=== PATIENT | male | born 1970 | race Caucasian/White ===

== ENCOUNTER 2017-03-26 07:11 | Observation (INO) | payer BC ==
--- NOTE | ~2017-03-26 | EKG ---
PATIENT: DEVEN AGUILAR UNIT #: [id number] Ventricular Rate: 45 BPM Atrial Rate: 45 BPM P-R Interval: 170 ms QRS Duration: 104 ms Q-T Interval: 478 ms QTC Calculation(Bezet): 413 ms P Montgomery: 65 degrees Calculated R Montgomery: 75 degrees Calculated T Montgomery: 13 degrees Diagnosis Line: Sinus bradycardia Diagnosis Line: Otherwise normal ECG Diagnosis Line: No previous ECGs available Diagnosis Line: Confirmed by ARASH JUSTIN MD ([id number]) on Diagnosis Line: 03/26/2017 8:38:01 AM INTERPRETING MD: NHAN LIU
--- NOTE | ~2017-03-26 | CR58 ---
[facility] A Service of [facility] & [facility] RADIOLOGY TEXT RESULTS PATIENT: DEVEN AGUILAR LOCATION: [facility] 311-01 : 72 UNIT #: [id number] AGE: [address]: Inna Lennon MD SEX: M ORDER DR: [id number] [facility] [address] [place], [place] [address] [id number] E MR#: [id number] Acc #: [id number] NAME: DEVEN AGUILAR. : 1970 SEX: M STUDY DATE/TIME: 03/26/2017 8:03 UNIT: [facility] ROOM: STUDY DESCRIPTION: CR Cervical Spine 2 or 3 Views Attending Physician: Lois Randall M.D. Ordering Physician: Blessing Tan Pa-C Primary Care Physician: Primary Care Physician No MEDICAL IMAGING REPORT This report is preliminary unless electronic signature is present EXAM Cervical spine series, 03/26/17 HISTORY Neck pain primarily right sided since yesterday, trampoline injury FINDINGS There is a slight scoliosis but no anterolisthesis or retrolisthesis. Prevertebral swelling or evidence of fracture, or other acute abnormality. Incidentally noted atherosclerotic vascular calcification at the right cervical bifurcation. No other acute findings. Dictated by... Pino Tena M.D. THIS IS AN ELECTRONICALLY VERIFIED REPORT Pino Tena M.D. at 03/28/2017 1:22 PM SALINAS/oskar TD: 03/26/2017 11:56 JOB #: [id number] MEDICAL IMAGING REPORT Page 1 of 1 COPY
--- NOTE | ~2017-03-26 | ST ---
Unit #: [id number] #: [id number] Patient: DEVEN AGUILAR [id number] [address] [address] [id number] I MR#: [id number] NAME: DEVEN AGUILAR. : 1970 SEX: M STUDY DATE/TIME: 03/27/2017 UNIT: C3A PCU ROOM: 311 STUDY DESCRIPTION: Stress test Attending Physician: Inna Lennon M.D. Primary Care Physician: No Primary Care Physician CARDIOLOGY REPORT EXAM Lexiscan Cardiolite stress test. FINDINGS Baseline EKG: Normal sinus rhythm with ventricular rate 85 beats per minute, left atrial abnormality, poor R wave progression, nondiagnostic Q waves in lateral leads. Lexiscan is a four minute test with Lexiscan being injected within the first minute followed by Cardiolite. EKG during the test was equivocal to baseline. No acute ischemic changes. The patient had no complaints of chest pain, palpitations or dizziness. The patient had increased shortness of breath and fatigue which resolved in the recovery phase. Maximum heart rate response was 86 beats per minute with a maximum blood pressure response of 146/83 beats per minute. It is noted that there is no sinus bradycardia noted on this exam. Cardiolite was injected after Lexiscan within the first minute of the test. Radionuclide test pending. Please correlate with nuclear images. Dictated by... Gely Ruiz A.P.R.N. for Keeley Aceves/shania TD: 03/27/2017 09:25 JOB #: [id number] CARDIOLOGY REPORT Page 1 of 1 X Gely Ruiz APRN CARDIOLOGY REPORT
--- NOTE | ~2017-03-26 | HP ---
Unit #: [id number] #: [id number] Patient: DEVEN AGUILAR [id number] [address] [address] [id number] I MR#: [id number] NAME: DEVEN AGUILAR. ROOM: 311 Age: 46 Sex: M Admission Date: 03/26/2017 : 1970 Attending Physician: Inna Lennon M.D. Primary Care Physician: No Primary Care Physician HISTORY AND PHYSICAL ADDENDUM The patient was admitted with most likely vasovagal near syncopal episode and symptomatic bradycardia. He underwent Lexiscan Cardiolite stress test which found the patient to have an ejection fraction of 51%. There was no stress induced ischemia or focal wall abnormality. His left ventricle cavity was mild to moderately dilated both rest and post stress. Echocardiogram report is currently pending. The patient can be discharged home today to follow up with Dr. Lennon on 05/07/2017 at 1:30 p.m. He needs to follow up with a primary care physician in one to two weeks. He will be started on lisinopril 5 mg p.o. q.h.s. as well as continuation of aspirin 81 mg daily. He has a prescription for Flexeril 5 mg t.i.d. for his cervical neck strain. Dictated by Arley Mark A.P.R.N. for Keeley Aceves/shania TD: 03/27/2017 11:29 JOB #: [id number] HISTORY AND PHYSICAL Page 1 of 1 X Arley Mark APRN X HISTORY AND PHYSICAL
--- NOTE | ~2017-03-26 | CR72 ---
[facility] A Service of [facility] & [facility] RADIOLOGY TEXT RESULTS PATIENT: DEVEN AGUILAR LOCATION: [facility] [id number] : [birth year] UNIT #: [id number] AGE: [address]: Inna Lennon MD SEX: M ORDER DR: [id number] [facility] [address] [facility]. [place], [place] [address] [id number] E MR#: [id number] Acc #: [id number] NAME: DEVEN AGUILAR. : 1970 SEX: M STUDY DATE/TIME: 03/26/2017 0956 UNIT: [facility] ROOM: STUDY DESCRIPTION: CR Chest Single View Portable Attending Physician: Lois Randall M.D. Ordering Physician: Lois Randall M.D. Primary Care Physician: No Primary Care Physician MEDICAL IMAGING REPORT This report is preliminary unless electronic signature is present EXAM Chest, portable, 03/26/2017, 0956 hours. CLINICAL HISTORY 46-year-old man complaining of syncope with shortness of air since yesterday, bradycardia. COMPARISON 02/13/2012 FINDINGS 2 portable upright chest films were performed with pacer pad over the mediastinum and heart. The cardiac, mediastinal, and hilar contours are normal. The lungs are well expanded and clear. There is no effusion or pneumothorax. IMPRESSION No acute cardiopulmonary findings. No appreciable change from 02/23/2012. Dictated by... Pattie Jeffers M.D. THIS IS AN ELECTRONICALLY VERIFIED REPORT Pattie Jeffers M.D. at 03/26/2017 2:26 PM ENRIQUETA/morgan TD: 03/26/2017 13:38 JOB #: [id number] MEDICAL IMAGING REPORT Page 1 of 1 COPY
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
--- NOTE | ~2017-03-26 | TH ---
Unit #: [id number] #: [id number] Patient: DEVEN AGUILAR [id number] [address] [address] [id number] I MR#: [id number] NAME: DEVEN AGUILAR. : 1970 SEX: M [facility] DATE[facility]: [facility] 311 STUDY DESCRIPTION: Nuclear Study Attending Physician: Inna Lennon M.D. Primary Care Physician: No Primary Care Physician CARDIOLOGY REPORT EXAM Lexiscan Cardiolite Stress Test - Nuclear Portion PROCEDURE Using technetium 99m labeled Cardiolite, rest and stress SPECT images were obtained. Multiple SPECT images were obtained in various views including horizontal and vertical long axis and short axis views of the left ventricle. Images were obtained by gated SPECT method. The patient was administered 12.0 mCi of Cardiolite at rest. The patient was administered 32.3 mCi of Cardiolite after Lexiscan infusion was completed. On the stress images, there is normal perfusion noted. The rest images show normal perfusion. Comparing rest and stress images, there is no stress-induced ischemia noted. The left ventricular ejection fraction is calculated to be 51%. The left ventricular cavity is mild to moderately dilated, both at rest and post stress. CONCLUSION 1. No obvious stress-induced ischemia noted. 2. The left ventricular ejection fraction is calculated to be 51%. 3. There is no focal wall motion abnormality seen. 4. The left ventricular cavity is mild to moderately dilated, both at rest and post stress. 5. Normal Lexiscan Cardiolite stress test. 6. Technically limited study. Clinical correlation is requested. Dictated by... Keeley Aceves TD: 03/27/2017 10:52 JOB #: [id number] Unit #: [id number] #: [id number] Patient: DEVEN AGUILAR CARDIOLOGY REPORT Page 1 of 1 X Inna Lennon MD <ELECTRONICALLY SIGNED> 06/02/17 1429 CARDIOLOGY REPORT
[~2017-03-26 07:11] MED LIST: ADVIL200 M2 PO; BACLOFEN10 MG PO; IBUPROFEN800 MG PO; LORTAB 7.5-3251 EACH PO; SIMVASTATIN20 MG PO; TYLENOL #3 PO
[2017-03-26 08:49] LABS: BASOPHIL# 0.1 X10e3 (0-0.3); BASOPHIL% 0.8 % (0-2.5); EOSINOPHIL# 0.1 X10e3 (0-0.7); EOSINOPHIL% 1.7 % (0.0-7.0); HEMATOCRIT 45.7 % (38.0-50.0); HEMOGLOBIN 14.9 gm/dL (13.0-16.0); LYMPHOCYTE# 2.8 X10e3 (1.0-3.5); LYMPHOCYTE% 35.6 % (17.0-45.0); MEAN CELL VOLUME 92.1 FL (83-96); MEAN CORPUSCULAR HEMOGLOBIN 30.1 PG (28-34); MEAN CORPUSCULAR HGB CONC 32.7 g/dL (30-36); MEAN PLATELET VOLUME 9.9 FL (6.5-11.5); MONOCYTE# 0.8 X10e3 (0-1.0); MONOCYTE% 10.6 % (3.0-12.0); NEUTROPHIL% 51.3 % (40-75); RED BLOOD COUNT 4.96 X10e (3.90-5.60); RED CELL DISTRIBUTION WIDTH 12.6 % (11.0-15.5); WHITE BLOOD COUNT 7.8 X10e3 (4.0-10.5)
[2017-03-26 08:53] LABS: POC - CKMB 1.4 ng/mL (0.0-7.9); POC - TROPONIN <0.05 ng/mL (<=0.05)
[2017-03-26 09:03] LABS: ALBUMIN SERUM 4.2 g/dL (3.5-5.0); BILIRUBIN, DIRECT 0.1 mg/dL (0.0-0.2); BILIRUBIN,INDIRECT 0.5 mg/dL (0.0-0.9); BILIRUBIN,TOTAL 0.6 mg/dL (0.2-2.0); CALCIUM SERUM 9.5 mg/dL (8.4-10.2); GLOM FILT RATE Estimated 90.5 mL/min (>60); POTASSIUM 3.5 mmol/L (3.5-5.1)
[2017-03-26 09:17] LABS: DIFF IND NO; PLATELET COUNT 200 X10e3 (140-420)
[2017-03-26] MEDS ORDERED: PATIENT'S PHARMACY (10:12)
[2017-03-26 12:01] LABS: POC - CKMB 5.7 ng/mL (0.0-7.9); POC - TROPONIN <0.05 ng/mL (<=0.05)
[2017-03-26 12:02] LABS: URINE SOURCE CLEAN CATCH
[2017-03-26 12:18] LABS: URINE APPEARANCE CLEAR; URINE BILIRUBIN NEG (NEG); URINE BLOOD TRACE (NEG); URINE COLOR YELLOW; URINE GLUCOSE NEG (NEG); URINE KETONE NEG (NEG); URINE LEUKOCYTE ESTERASE NEG (NEG); URINE NITRATE NEG (NEG); URINE PROTEIN NEG (NEG); URINE SPECIFIC GRAVITY 1.008 (1.003-1.035); URINE UROBILINOGEN 0.2 MG/DL (NEG)
[2017-03-26 12:24] LABS: URBCS1 AUWI 0-2 /[HPF] (0-2); URINE BACTERIA AUWI NEG (NEGATIVE); URINE SQUAMOUS EPITHELIAL CELL NONE SEEN /[HPF]; UWBCS1 AUWI 0-2 (0-5)
[2017-03-26 12:36] LABS: CULTURE INDICATED? NO
[2017-03-26 12:39] LABS: AMPHETAMINE POS (NEG); BARBITURATES NEG (NEG); BENZODIAZEPINES NEG (NEG); COCAINE NEG (NEG); MARIJUANA POS (NEG); OPIATES NEG (NEG); TRICYCLIC ANTIDEPRESSANTS NEG (NEG); U METHADONE NEG (NEG)
[2017-03-26 18:33] LABS: BUN/CREATININE RATIO 16.25; CALCIUM SERUM 8.8 mg/dL (8.4-10.2); CREATININE SERUM 0.8 mg/dL (0.6-1.4); GLOM FILT RATE Estimated 107.9 mL/min (>60); POTASSIUM 4.1 mmol/L (3.5-5.1)
[2017-03-26 18:53] LABS: %MB 2.4 % (0.0-4.0); MB 9.9 ng/ml
[2017-03-27 01:43] LABS: BUN/CREATININE RATIO 13.33; CREATININE SERUM 0.9 mg/dL (0.6-1.4); GLOM FILT RATE Estimated 102.8 mL/min (>60); MAGNESIUM 1.9 mg/dL (1.6-3.0); POTASSIUM 3.8 mmol/L (3.5-5.1)
[2017-03-27 01:52] LABS: %MB 1.7 % (0.0-4.0); MB 6.5 ng/ml
[2017-03-27] MEDS ORDERED: ASPIRIN EC650 MG PO (13:03)
[2017-03-27] MEDS ORDERED: ASPIRIN81 MG PO (13:03)
[2017-03-27] MEDS ORDERED: IBUPROFEN800 MG PO (13:04)
[2017-03-27] MEDS ORDERED: FLEXERIL10 MG PO (13:05)
[2017-03-27] MEDS ORDERED: LISINOPRIL5 MG PO (13:05)
== END 2017-03-27 15:41 | disposition home or self-care (01) | DRG 312 ==
LOC: CED 07:11 → CEDOF 13:11 → C3A PCU 15:34
PROVIDERS: Internal Medicine Cardiovascular Disease; Nurse Practitioner; Physician Assistant Medical; Student in an Organized Health Care Education/Training Program
DX: R55 Syncope and collapse (principal); R00.1 Bradycardia, unspecified; S16.1XXA Strain of muscle, fascia and tendon at neck level, initial encounter; W21.89XA Striking against or struck by other sports equipment, initial encounter; I08.1 Rheumatic disorders of both mitral and tricuspid valves; Z82.49 Family history of ischemic heart disease and other diseases of the circulatory system; F17.210 Nicotine dependence, cigarettes, uncomplicated; Z82.3 Family history of stroke; Z79.82 Long term (current) use of aspirin
CPT/HCPCS: 36415; 71010; 72040; 78452; 80048; 80061; 80076; 80307; 81003; 82550; 82553; 83735; 84443; 84484; 85025; 93005; 93017; 93306; 96372; 99285; A9500; G0378; J0461; J1650; J1885; J2360; J2785

== ENCOUNTER 2017-06-04 19:17 | Emergency (ER) | payer BC ==
[~2017-06-04] VITALS: Ht 177.8 cm; Wt 72.6 kg
--- NOTE | ~2017-06-04 | CT4 ---
[facility] A Service of [facility] RADIOLOGY TEXT RESULTS PATIENT: DEVEN AGUILAR LOCATION: SED : 72 UNIT #: [id number] AGE: [address]: Moses Colvin MD SEX: M ORDER DR: [id number] [place] [id number] E MR#: [id number] Acc #: [id number] NAME: DEVEN AGUILAR. : 1970 SEX: M STUDY DATE/TIME: 06/04/2017 20:30 UNIT: SED ROOM: STUDY DESCRIPTION: CT Abd and Pelv Wo Cont Attending Physician: Moses Colvin M.D. Ordering Physician: Moses Colvin M.D. Primary Care Physician: Primary Care Physician No MEDICAL IMAGING REPORT This report is preliminary unless electronic signature is present. EXAM CT scan of the abdomen and pelvis without contrast 06/04/2017 HISTORY Right flank pain for 4 days and history of kidney stones. Evaluate for obstructing renal calculus. TECHNIQUE Spiral CT was performed through the abdomen and pelvis without oral or intravenous contrast administration using renal stone protocol. This CT examination was performed with one or more of the following radiation dose reduction techniques: automatic exposure control, adjustment of mA and/or kV according to patient size, and iterative reconstruction. FINDINGS There is mild right hydronephrosis and hydroureter due to a 4 mm obstructing stone in the mid right ureter. There is mild inflammatory stranding in the right perinephric fat. Nonobstructing renal stones are seen bilaterally. The visualized liver, spleen, pancreas, gallbladder and biliary tree and adrenal glands are normal. PELVIS: The gut, mesenteric and yamila structures are normal. There is no free fluid in the abdomen or pelvis. IMPRESSION 1. Mild right hydronephrosis and hydroureter due to a 4 mm obstructing stone in the mid right ureter. 2. Nonobstructing renal stones bilaterally. Dictated by... [facility] A Service of [facility] RADIOLOGY TEXT RESULTS PATIENT: DEVEN AUGILAR LOCATION: SED : 72 UNIT #: [id number] AGE: [address]: Moses Colvin MD SEX: M ORDER DR: Shaan Pringle M.D. THIS IS AN ELECTRONICALLY VERIFIED REPORT Shaan Pringle M.D. at 06/05/2017 2:14 PM ZAIDA/negrito TD: 06/05/2017 10:55 JOB #: [id number] MEDICAL IMAGING REPORT Page 1 of 1
[~2017-06-04 19:17] MED LIST changes: +ASPIRIN EC650 MG PO; +ASPIRIN81 MG PO; +FLEXERIL10 MG PO; +LISINOPRIL5 MG PO; +PATIENT'S PHARMACY
[2017-06-04 20:30] LABS: URINE SOURCE CLEAN CATCH
[2017-06-04 20:32] LABS: URINE APPEARANCE HAZY; URINE BILIRUBIN NEG (NEG); URINE BLOOD 3+ (NEG); URINE COLOR YELLOW; URINE GLUCOSE NEG (NORM); URINE KETONE NEG (NEG); URINE LEUKOCYTE ESTERASE NEG (NEG); URINE NITRATE NEG (NEG); URINE PH 5.5 (5-8); URINE PROTEIN NEG (NEG); URINE SPECIFIC GRAVITY 1.025 (1.003-1.035); URINE UROBILINOGEN 0.2 MG/DL (NORM)
[2017-06-04 20:34] LABS: BASOPHIL# 0.1 X10e3 (0-0.3); BASOPHIL% 0.8 % (0-2.5); DIFF IND NO; EOSINOPHIL# 0.1 X10e3 (0-0.7); EOSINOPHIL% 0.7 % (0.0-7.0); HEMATOCRIT 40.9 % (38.0-50.0); HEMOGLOBIN 14.2 gm/dL (13.0-16.0); LYMPHOCYTE# 2.4 X10e3 (1.0-3.5); LYMPHOCYTE% 24.8 % (17.0-45.0); MEAN CELL VOLUME 90.8 FL (83-96); MEAN CORPUSCULAR HEMOGLOBIN 31.7 PG (28-34); MEAN CORPUSCULAR HGB CONC 34.9 g/dL (30-36); MEAN PLATELET VOLUME 9.6 FL (6.5-11.5); MONOCYTE% 10.2 % (3.0-12.0); NEUTROPHIL# 6.2 X10e3 (1.5-7.1); NEUTROPHIL% 63.5 % (40-75); PLATELET COUNT 214 X10e3 (140-420); RED CELL DISTRIBUTION WIDTH 13.1 % (11.0-15.5); WHITE BLOOD COUNT 9.7 X10e3 (4.0-10.5)
[2017-06-04 20:34] LABS: MICRO INDICATED? YES
[2017-06-04 20:40] LABS: CULTURE INDICATED? NO; URINE BACTERIA NEG (NEG); URINE CRYSTALS CALCIUM OXALATE /[HPF]; URINE MUCUS PRESENT; URINE RBC 200-300 /[HPF] (0-2)
[2017-06-04 20:51] LABS: ALBUMIN SERUM 4.2 g/dL (3.5-5.0); BILIRUBIN, DIRECT 0.1 mg/dL (0.0-0.2); BILIRUBIN,INDIRECT 0.2 mg/dL (0.0-0.9); BILIRUBIN,TOTAL 0.3 mg/dL (0.2-2.0); CALCIUM SERUM 9.4 mg/dL (8.4-10.2); GLOM FILT RATE Estimated 90.5 mL/min (>60); POTASSIUM 3.2 mmol/L (3.5-5.1); PROTEIN TOTAL SERUM 7.1 g/dL (6.0-8.3)
== END 2017-06-04 22:03 | disposition home or self-care (01) ==
LOC: SED 19:17
PROVIDERS: Emergency Medicine
DX: N13.2 Hydronephrosis with renal and ureteral calculous obstruction (principal); F17.200 Nicotine dependence, unspecified, uncomplicated
CPT/HCPCS: 36415; 74176; 80048; 80076; 81003; 85025; 96361; 96374; 96375; 99284; J1885; J2405